=== PATIENT | female | born 1990 | race Caucasian/White ===

== ENCOUNTER 2018-04-15 12:34 | Emergency (ER) | payer BC, OTHER ==
[2018-04-15 12:57] VITALS: BP 166/95; PULSE 86; TEMP 98.5; BMI 49.8
--- NOTE | 2018-04-15 13:38 | PDOC ---
History of Present Illness - General Chief Complaint: Back Pain Stated Complaint: BACK PAIN Time Seen by Provider: 04/15/18 12:56 History Source: Patient Exam Limitations: No Limitations - History of Present Illness Initial Comments: 04/15/18 13:32 28 yr obese female with c/o chronic low back pain states today was drinking coffee and felt a stabbing to her left lower back. non radiating, neg leg numbness or tingling. pt has history of hypothyroid, PCOS. Occurred: reports: this morning Severity: reports: moderate Pain Location: reports: back Method of Injury: Yes: unknown Past History - Past Medical History Allergies/Adverse Reactions: Allergies Allergy/AdvReac Type Severity Reaction Status Date / Time Penicillins Allergy Severe Rash Verified 04/15/18 12:52 amoxicillin [Amoxicillin] Allergy Intermediate Rash Verified 04/15/18 12:52 Home Medications: Ambulatory Orders Levothyroxine [Synthroid] 75 mcg PO DAILY 02/06/13 metFORMIN HCL [Glucophage] 1,000 mg PO DAILY 02/06/13 Diazepam [Valium] 5 mg PO Q8H PRN #15 tablet MDD 15mg 04/15/18 COPD: No CHF: No DVT: No Thyroid Disease: Yes (HYPO) - Immunization History Immunization Up to Date: Yes - Suicide/Smoking/Psychosocial Hx Smoking Status: No Smoking History: Never smoked Have you smoked in the past 12 months: No Number of Cigarettes Smoked Daily: 0 Information on smoking cessation initiated: No Hx Alcohol Use: No Drug/Substance Use Hx: No Substance Use Type: None Review of Systems - Review of Systems Able to Perform ROS?: Yes Is the patient limited [place] proficient: No Constitutional: No: Symptoms Reported HEENTM: No: Symptoms Reported Respiratory: No: Symptoms reported Cardiac (ROS): No: Symptoms Reported ABD/GI: No: Symptoms Reported : No: Symptoms Reported Musculoskeletal: Yes: Symptoms Reported, Back Pain *Physical Exam - Vital Signs Last Vital Signs Temp Pulse Resp BP Pulse Ox 98.5 F 86 16 166/95 100 04/15/18 12:35 04/15/18 12:35 04/15/18 12:35 04/15/18 12:35 04/15/18 12:35 - Physical Exam General Appearance: Yes: Nourished, Appropriately Dressed, Obese HEENT: positive: EOMI, GIANA Neck: positive: Supple. negative: Tender Respiratory/Chest: positive: Lungs Clear, Normal Breath Sounds Cardiovascular: positive: Regular Rhythm, Regular Rate Gastrointestinal/Abdominal: positive: Normal Bowel Sounds, Soft. negative: Tender Lymphatic: negative: Adenopathy Musculoskeletal: positive: Normal Inspection, Decreased Range of Motion, Muscle Spasm. negative: CVA Tenderness, CVA Tenderness (R), Vertebral Tenderness ( thoracic left side para spinal spasm ) Extremity: positive: Normal Capillary Refill, Normal Inspection, Normal Range of Motion Moderate Sedation - Procedure Monitoring Vital Signs: Procedure Monitoring Vital Signs Temperature 98.5 F 04/15/18 12:35 Pulse Rate 86 04/15/18 12:35 Respiratory Rate 16 04/15/18 12:35 Blood Pressure 166/95 04/15/18 12:35 O2 Sat by Pulse Oximetry (%) 100 04/15/18 12:35 Medical Decision Making - Medical Decision Making 04/15/18 13:34 cc: acute on chronic low back pain no urine or bowel dysfunction no saddle anesthesia pt walking with limp took naprosyn 500mg at 630am will r/o kidney stone, UTI, low back strain 04/15/18 13:42 *DC/Admit/Observation/Transfer Diagnosis at time of Disposition: Muscle spasm of back - Discharge Dispostion Disposition: HOME Condition at time of disposition: Good - Prescriptions Prescriptions: Diazepam [Valium] 5 mg PO Q8H PRN #15 tablet MDD 15mg PRN Reason: Muscle Spasms - Referrals Referrals: Juany Fajardo MD [Primary Care Provider] - - Patient Instructions Additional Instructions: apply heating pad to the lower back every 3hrs for 20 minutes apply at topical cream such as Biofreeze take valium every 8hrs for muscle spasm follow with your doctor as scheduled, however if pain worsens or continues return to the ER or see the orthopedist for follow up - Post Discharge Activity
[2018-04-15 14:11] LABS: URINE APPEARANCE CLEAR; URINE BILIRUBIN NEGATIVE (<2.0 mg/dL); URINE COLOR LTYELLOW; URINE GLUCOSE (UA) NEGATIVE (NEGATIVE); URINE KETONE NEGATIVE (NEGATIVE); URINE LEUK ESTERASE NEGATIVE (NEGATIVE); URINE NITRITE NEGATIVE (NEGATIVE); URINE PROTEIN NEGATIVE (NEGATIVE); URINE UROBILINOGEN NEGATIVE mg/dL (0.2-1.0)
[2018-04-15 14:12] LABS: HCG,QUALITATIVE URINE Negative
[2018-04-15] MEDS ORDERED: KETOROLAC TROMETHAMINE 60 MG/2 ML VIAL IM ONE (14:15)
[2018-04-15] MEDS ORDERED: diazePAM 5 MG TABLET PO ONE (14:15)
[2018-04-15] MEDS ORDERED: diazePAM 5 MG TABLET ONE (14:18)
[2018-04-15] MEDS ORDERED: KETOROLAC TROMETHAMINE 60 MG/2 ML VIAL ONE (14:18)
== END 2018-04-15 14:35 | disposition home or self-care (01) ==
LOC: JERFT 12:34
PROC: 3E0233Z Introduction of Anti-inflammatory into Muscle, Percutaneous Approach (ICD-10-PCS; principal; 2018-04-15)
DX: M62.830 Muscle spasm of back (principal); E03.9 Hypothyroidism, unspecified; G89.29 Other chronic pain
CPT/HCPCS: 81003; 84703; 99281-25

== ENCOUNTER 2023-10-10 14:00 | Emergency (ER) | payer OTHER ==
[2023-10-10 14:14] VITALS: RESP 18; BMI 60.0
[2023-10-10] MEDS ORDERED: LIDOCAINE 5% TOPICAL PATCH TP ONE (15:07)
[2023-10-10] MEDS ORDERED: KETOROLAC TROMETHAMINE 30 MG/1 ML VIAL ONE (15:14)
[2023-10-10] MEDS ORDERED: LIDOCAINE 4% PATCH TP ONE (15:14)
[2023-10-10] MEDS: KETOROLAC TROMETHAMINE 30 MG/1 ML VIAL IM ONE (15:34)
[2023-10-10] MEDS: LIDOCAINE 4% PATCH TP ONE (15:35)
[2023-10-10 16:30] VITALS: BP 138/90; PULSE 94; TEMP 98.1
[2023-10-10] MEDS ORDERED: LIDOCAINE PATCH REMOVAL MC SCH ×2 (22:00)
== END 2023-10-10 16:32 | disposition home or self-care (01) ==
LOC: JERFT 14:00
PROC: 3E0133Z Introduction of Anti-inflammatory into Subcutaneous Tissue, Percutaneous Approach (ICD-10-PCS; principal; 2023-10-10)
DX: M54.50 Low back pain, unspecified (principal); V59.50XA Passenger in pick-up truck or van injured in collision with unspecified motor vehicles in traffic accident, initial encounter; Y92.410 Unspecified street and highway as the place of occurrence of the external cause
CPT/HCPCS: 72100-TC-FY; 99284-25